=== PATIENT | female | born 1955 | race American Indian/Alaskan Native ===

== ENCOUNTER 2016-07-30 15:56 | Emergency (ER) | payer BC ==
[2016-07-30 16:27] LABS: Basophils % (Auto) 0.8 % (0.0-1.8); Eosinophils % (Auto) 3.9 % (0.0-4.3); Hemoglobin 13.8 gm/dl (10.1-14.3); Mean Corpuscular HGB Conc 34 % (30-34); Mean Corpuscular Hemoglobin 32 pg (28-32); Mean Corpuscular Volume 94 fl (79-97); Platelet Count 275 K/mm3 (140-440); Red Blood Count 4.37 M/mm3 (3.65-5.03); Red Cell Distribution Width 13.7 % (13.2-15.2); White Blood Count 8.6 K/mm3 (4.5-11.0)
[2016-07-30 16:54] LABS: Anion Gap 17 mmol/L; BUN/Creatinine Ratio 13.33; Blood Urea Nitrogen 8 mg/dL (7-17); Calcium 9.7 mg/dL (8.4-10.2); Carbon Dioxide 25 mmol/L (22-30); Chloride 102.1 mmol/L (98-107); Glucose 102 mg/dL (65-100); Potassium 3.9 mmol/L (3.6-5.0); Sodium 140 mmol/L (137-145)
--- NOTE | 2016-07-30 16:57 | Emergency Department Report ---
HPI - General Chief Complaint: Arrhythmia/Palpitations Time Seen by Provider: 07/30/16 16:21 - HPI HPI: This is a 60-year-old [place] female presents emergency department from EMS from work with complaint of feeling dizzy, flushed and having palpitations. EMS found the patient to be in SVT with a rate of about 200. They tried some vagal maneuvers without any relief. She was given 6 millions of adenosine and the patient converted to a sinus rhythm. She now says she is feeling much improved. She says that she had one previous episode of this a few years back. She has a history of asthma, hypertension. She denies tobacco or illicit drug use or abuse. She did not take anything for symptoms prior to EMSs arrival. No recent travel or sick contacts at home. Her primary care doctor is a Dr. Long at [facility] [place]. ED Past Medical Hx - Past Medical History Previous Medical History?: Yes Hx Hypertension: Yes Hx Asthma: Yes - Surgical History Past Surgical History?: Yes Additional Surgical History: tubal ligation - Social History Smoking Status: Never Smoker Substance Use Type: None - Medications Home Medications: Home Medications Medication Instructions Recorded Confirmed Last Taken Type Candesartan (Nf) [Atacand (Nf)] 32 mg PO DAILY 07/30/16 07/30/16 07/30/16 History Hydrochlorothiazide [Hctz] 12.5 mg PO QDAY 07/30/16 07/30/16 07/30/16 History ED Review of Systems ROS: Stated complaint: Other details as noted in HPI Comment: All other systems reviewed and negative Constitutional: denies: chills, fever Eyes: denies: eye pain, eye discharge, vision change ENT: denies: ear pain, throat pain Respiratory: denies: cough, shortness of breath, wheezing Cardiovascular: palpitations. denies: chest pain Gastrointestinal: denies: abdominal pain, nausea, diarrhea Genitourinary: denies: urgency, dysuria, discharge Musculoskeletal: denies: back pain, joint swelling, arthralgia Skin: denies: rash, lesions Neurological: other (dizzy). denies: headache, weakness, paresthesias Physical Exam - Physical Exam Vital Signs: Vital Signs 07/30/16 07/30/16 07/30/16 15:59 16:01 16:31 Temperature 98.1 F Pulse Rate 98 H 98 H 98 H Respiratory 16 20 17 Rate Blood Pressure 142/82 146/92 O2 Sat by Pulse 99 97 95 Oximetry Physical Exam: GENERAL: The patient is well-developed well-nourished. HEENT: Normocephalic. Atraumatic. Extraocular motions are intact. Patient has moist mucous membranes. Pupils equal reactive to light bilaterally. NECK: Supple. Trachea is midline. CHEST/LUNGS: Clear to auscultation. There is no respiratory distress noted. HEART/CARDIOVASCULAR: Regular. There is no tachycardia. There is no gallop rub or murmur. ABDOMEN: Abdomen is soft, nontender. Patient has normal bowel sounds. There is no abdominal distention. SKIN: Skin is warm and dry. NEURO: The patient is awake, alert, and oriented. The patient is cooperative. The patient has no focal neurologic deficits. The patient has normal speech. Cranial nerves II through XII grossly intact. MUSCULOSKELETAL: There is no tenderness or deformity. There is no limitation range of motion. There is no evidence of acute injury. ED Course Vital Signs 07/30/16 07/30/16 07/30/16 15:59 16:01 16:31 Temperature 98.1 F Pulse Rate 98 H 98 H 98 H Respiratory 16 20 17 Rate Blood Pressure 142/82 146/92 O2 Sat by Pulse 99 97 95 Oximetry ED Medical Decision Making - Lab Data Result diagrams: 07/30/16 16:00 07/30/16 16:00 - EKG Data -: EKG Interpreted by [facility] EKG shows normal: sinus rhythm, axis (LAD), intervals, QRS complexes ( incomplete right bundle branch block, LVH), ST-T waves Rate: normal - EKG Data When compared to previous EKG there are: previous EKG unavailable Interpretation: other (sinus rhythm, left axis deviation, right bundle-branch block, LVH) - Medical Decision Making 60-year-old female presents to the emergency department after she had an episode of SVT that converted with adenosine. Patient's labs are unremarkable and do not show any etiology of the patient's symptoms. Since she's been in the emergency department she feels back at baseline without any palpitations or any other symptoms. She will be given a referral for cardiology to follow up regarding the SVT but will return to the ER with any worsening of her symptoms or any acute distress. - Differential Diagnosis hyperthyroidism, caffeine abuse, RI Critical Care Time: No Critical care attestation.: If time is entered above; I have spent that time in minutes in the direct care of this critically ill patient, excluding procedure time. ED Disposition Clinical Impression: SVT (supraventricular tachycardia), Palpitations Disposition: DISCHARGED TO HOME OR SELFCARE Is pt being admited?: No Condition: Stable Instructions: Supraventricular Tachycardia (ED), Palpitations (ED) Additional Instructions: Please follow-up with your primary care doctor in the next few days. Return to the emergency department with any worsening of your symptoms or any acute distress. I have given you a referral for a local casting chipper, Dr. Winn, to follow up regarding your SVT. Referrals: PRIMARY MD EDEL [Primary Care Provider] - 3-5 Days ANNY WINN MD [Staff Physician] - 3-5 Days Time of Disposition: 19:52
[2016-07-30 19:24] VITALS: BP 141/86
== END 2016-07-30 20:05 | disposition home or self-care (01) ==
LOC: ED 15:56
DX: I47.1 Supraventricular tachycardia (principal); R00.2 Palpitations; I10 Essential (primary) hypertension; J45.909 Unspecified asthma, uncomplicated
CPT/HCPCS: 36415; 80048; 84443; 84484; 85025; 93005; 93010; 99284